=== PATIENT | male | born 2005 | race Caucasian/White ===

== ENCOUNTER 2025-08-13 21:06 | Inpatient (IN) | payer BC, SELFPAY ==
[2025-08-13 21:32] LABS: #Basophils 0.05 10x3/uL (0.0-0.2); #Eosinophils 0.03 10x3/uL (0.0-0.7); #Monocytes 0.28 10x3/uL (0.11-0.59); #Neutrophils 5.34 10x3/uL (1.40-6.50); %Basophils 0.7 % (0.0-1.0); %Eosinophils 0.4 % (0.0-10.0); %Lymphocytes 16.8 % (28.0-48.0); %Monocytes 4.1 % (0.0-4.0); %Neutrophils 77.6 % (31.0-61.0); Hematocrit 41.9 % (42.0-52.0); Hemoglobin 14.2 g/dL (14.0-18.0); Mean Corpuscular Hemoglobin 28.9 pg (25.0-35.0); Mean Corpuscular Volume 85.3 fL (78.0-98.0); Platelet Count 185 10x3/uL (130-400); Red Blood Cell (RBC) Count 4.91 mill/uL (4.00-5.20); White Blood Cell (WBC) Count 6.89 10x3/uL (4.8-10.8)
[2025-08-13 21:59] LABS: ALT (SGPT) 16 U/L (Less than 45); AST (SGOT) 21 U/L (11-34); Albumin 4.4 g/dL (3.1-4.5); Alkaline Phosphatase 54 U/L (50-130); Anion Gap 18 mmol/L (10-20); BUN (Urea Nitrogen) 17 mg/dL (8.4-21.0); Bilirubin, Total 2.0 mg/dL (0.3-1.2); Calc. Creatinine Clearance 0 mL/min (70-130); Calcium 8.7 mg/dL (7.8-10.44); Carbon Dioxide 21 mmol/L (22-29); Chloride 109 mmol/L (98-107); Globulin 2.4 g/dL (2.4-3.5); Glucose 115 mg/dL (70-105); Potassium 3.6 mmol/L (3.5-5.1); Sodium 144 mmol/L (136-145)
[2025-08-13 22:02] LABS: Acetaminophen 328 mcg/mL (Less than 10); Salicylate Less than 8.0 mg/dL (Less than 8.0)
[2025-08-13] MEDS ORDERED: Ondansetron PF 4 MG/2 ML Vial IVP PRN (23:15)
[2025-08-13 23:23] LABS: INR-International Normal Ratio 1.3; Prothrombin Time 16.2 sec (12.0-14.7)
[2025-08-13 23:24] LABS: PTT 27.4 sec (22.9-36.1)
[2025-08-13] MEDS ORDERED: Calcium Carbonate 500 MG ChewTAB PO PRN (23:44)
[2025-08-13] MEDS ORDERED: Ibuprofen 200 MG TAB PO PRN (23:44)
[2025-08-13] MEDS ORDERED: Electrolyte Replacement Protocol 1 EACH FS SCH (23:45)
[2025-08-14] MEDS ORDERED: Ondansetron PF 4 MG/2 ML Vial ONE (00:09)
[2025-08-14] MEDS: Ondansetron PF 4 MG/2 ML Vial IVP PRN (00:13)
[2025-08-14] MEDS: DEXTROSE 5% IV SCH ×2 (00:14→03:02)
[2025-08-14] MEDS: ACETYLCYSTEINE IV SCH ×2 (00:14→03:02)
[2025-08-14] MEDS: WATER IV SCH ×2 (00:14→03:02)
[2025-08-14 01:10] LABS: Bacteria/HPF None Seen HPF (None Seen); CAUTI Indications for Culture Alt mental st,lethar; Glucose, Urine (Dipstick) 150 mg/dL (Negative); Leukocyte Negative Leu/uL (Negative); Protein, Urine (Dipstick) Negative (Neg-Trace); RBC/HPF 0-3 HPF (0-3); Specific Gravity, Urine 1.033 (1.002-1.036); WBC/HPF 0-3 HPF (0-3)
[2025-08-14 01:13] LABS: Urine Culture Reflex No No
[2025-08-14 01:15] LABS: INR-International Normal Ratio 1.4; Prothrombin Time 16.8 sec (12.0-14.7)
[2025-08-14 01:16] LABS: PTT 29.8 sec (22.9-36.1)
[2025-08-14 01:18] LABS: Cocaine Metabolite Screen Negative (Negative); THC/Cannabinoid Screen Negative (Negative); Tricyclic Screen Negative (Negative)
[2025-08-14 01:24] LABS: ALT (SGPT) 16 U/L (Less than 45); AST (SGOT) 28 U/L (11-34); Albumin 4.1 g/dL (3.1-4.5); Alkaline Phosphatase 50 U/L (50-130); Anion Gap 18 mmol/L (10-20); BUN (Urea Nitrogen) 14 mg/dL (8.4-21.0); Bilirubin, Total 1.8 mg/dL (0.3-1.2); Calc. Creatinine Clearance 0 mL/min (70-130); Calcium 8.4 mg/dL (7.8-10.44); Carbon Dioxide 19 mmol/L (22-29); Chloride 109 mmol/L (98-107); Globulin 2.2 g/dL (2.4-3.5); Glucose 149 mg/dL (70-105); Potassium 3.6 mmol/L (3.5-5.1); Sodium 142 mmol/L (136-145)
[2025-08-14 05:17] LABS: #Basophils Less than 0.03 10x3/uL (0.0-0.2); #Eosinophils Less than 0.03 10x3/uL (0.0-0.7); #Monocytes 0.13 10x3/uL (0.11-0.59); #Neutrophils 3.66 10x3/uL (1.40-6.50); %Basophils 0.4 % (0.0-1.0); %Eosinophils 0.0 % (0.0-10.0); %Lymphocytes 17.3 % (28.0-48.0); %Monocytes 2.8 % (0.0-4.0); %Neutrophils 79.3 % (31.0-61.0); Hematocrit 39.4 % (42.0-52.0); Hemoglobin 13.4 g/dL (14.0-18.0); Mean Corpuscular Hemoglobin 29.2 pg (25.0-35.0); Mean Corpuscular Volume 85.8 fL (78.0-98.0); Platelet Count 189 10x3/uL (130-400); Red Blood Cell (RBC) Count 4.59 mill/uL (4.00-5.20); White Blood Cell (WBC) Count 4.62 10x3/uL (4.8-10.8)
[2025-08-14 05:51] LABS: ALT (SGPT) 22 U/L (Less than 45); AST (SGOT) 32 U/L (11-34); Albumin 4.0 g/dL (3.1-4.5); Alkaline Phosphatase 52 U/L (50-130); Anion Gap 17 mmol/L (10-20); BUN (Urea Nitrogen) 11 mg/dL (8.4-21.0); Bilirubin, Total 1.8 mg/dL (0.3-1.2); Calc. Creatinine Clearance 0 mL/min (70-130); Calcium 8.6 mg/dL (7.8-10.44); Carbon Dioxide 18 mmol/L (22-29); Chloride 108 mmol/L (98-107); Globulin 2.3 g/dL (2.4-3.5); Glucose 123 mg/dL (70-105); Potassium 3.5 mmol/L (3.5-5.1); Sodium 139 mmol/L (136-145)
[2025-08-14 05:57] LABS: Acetaminophen 153 mcg/mL (Less than 10)
[2025-08-14 08:07] VITALS: BP 113/62
[2025-08-14 16:42] VITALS: BMI 22.8
[2025-08-14 17:27] LABS: INR-International Normal Ratio 1.6; Prothrombin Time 19.5 sec (12.0-14.7)
[2025-08-14 17:28] LABS: ALT (SGPT) 20 U/L (Less than 45); AST (SGOT) 19 U/L (11-34); Albumin 3.5 g/dL (3.1-4.5); Alkaline Phosphatase 51 U/L (50-130); Anion Gap 6 mmol/L (10-20); BUN (Urea Nitrogen) 8 mg/dL (8.4-21.0); Bilirubin, Total 0.9 mg/dL (0.3-1.2); Calc. Creatinine Clearance 149 mL/min (70-130); Calcium 7.7 mg/dL (7.8-10.44); Carbon Dioxide 18 mmol/L (22-29); Chloride 108 mmol/L (98-107); Globulin 2.0 g/dL (2.4-3.5); Glucose 395 mg/dL (70-105); Potassium 3.3 mmol/L (3.5-5.1); Sodium 129 mmol/L (136-145)
[2025-08-14 17:31] LABS: ALT (SGPT) 18 U/L (Less than 45); AST (SGOT) 18 U/L (11-34); Acetaminophen 15 mcg/mL (Less than 10); Albumin 3.5 g/dL (3.1-4.5); Alkaline Phosphatase 52 U/L (50-130); Bilirubin, Direct 0.4 mg/dL (0.1-0.3); Bilirubin, Total 0.9 mg/dL (0.3-1.2)
[2025-08-14 20:51] LABS: ALT (SGPT) 20 U/L (Less than 45); AST (SGOT) 20 U/L (11-34); Albumin 3.8 g/dL (3.1-4.5); Alkaline Phosphatase 64 U/L (50-130); Anion Gap 12 mmol/L (10-20); BUN (Urea Nitrogen) 8 mg/dL (8.4-21.0); Bilirubin, Total 1.2 mg/dL (0.3-1.2); Calc. Creatinine Clearance 134 mL/min (70-130); Calcium 8.5 mg/dL (7.8-10.44); Carbon Dioxide 24 mmol/L (22-29); Chloride 110 mmol/L (98-107); Globulin 2.1 g/dL (2.4-3.5); Glucose 123 mg/dL (70-105); Potassium 3.5 mmol/L (3.5-5.1); Sodium 142 mmol/L (136-145)
[2025-08-14] MEDS ORDERED: Potassium Bicarbonate/Cit Ac 20 MEQ TAB PER TUBE SCH (21:00)
[2025-08-14] MEDS: Famotidine 20 MG TAB PO SCH (21:03)
[2025-08-14] MEDS: Potassium Bicarbonate/Cit Ac 20 MEQ TAB PO SCH (21:38)
[2025-08-15 03:33] LABS: #Basophils 0.04 10x3/uL (0.0-0.2); #Eosinophils 0.11 10x3/uL (0.0-0.7); #Monocytes 0.38 10x3/uL (0.11-0.59); #Neutrophils 3.59 10x3/uL (1.40-6.50); %Basophils 0.6 % (0.0-1.0); %Eosinophils 1.6 % (0.0-10.0); %Lymphocytes 38.2 % (28.0-48.0); %Monocytes 5.7 % (0.0-4.0); %Neutrophils 53.8 % (31.0-61.0); Hematocrit 42.9 % (42.0-52.0); Hemoglobin 15.0 g/dL (14.0-18.0); Mean Corpuscular Hemoglobin 29.5 pg (25.0-35.0); Mean Corpuscular Volume 84.4 fL (78.0-98.0); Platelet Count 221 10x3/uL (130-400); Red Blood Cell (RBC) Count 5.08 mill/uL (4.00-5.20); White Blood Cell (WBC) Count 6.68 10x3/uL (4.8-10.8)
[2025-08-15 03:53] LABS: INR-International Normal Ratio 1.3; Prothrombin Time 16.6 sec (12.0-14.7)
[2025-08-15 07:41] LABS: Acetaminophen Less than 10 mcg/mL (Less than 10)
[2025-08-15 10:01] LABS: ALT (SGPT) 20 U/L (Less than 45); AST (SGOT) 18 U/L (11-34); Albumin 4.0 g/dL (3.1-4.5); Alkaline Phosphatase 65 U/L (50-130); Bilirubin, Direct 0.3 mg/dL (0.1-0.3); Bilirubin, Total 0.9 mg/dL (0.3-1.2)
[2025-08-15 15:12] VITALS: BMI 22.8
[2025-08-15 22:14] VITALS: TEMP 97.3
== END 2025-08-15 22:05 | disposition short-term general hospital (02) | DRG 918 ==
LOC: ERS 21:06 → ERHOLD 22:59 → IMCU/EMU 08-14 16:35
PROVIDERS: ADMIT Student in an Organized Health Care Education/Training Program; ATTEND Internal Medicine
DX: T39.1X2A Poisoning by 4-Aminophenol derivatives, intentional self-harm, initial encounter (principal); R45.851 Suicidal ideations; F32.A Depression, unspecified; F41.9 Anxiety disorder, unspecified; Z79.899 Other long term (current) drug therapy
CPT/HCPCS: 36415; 36416; 80053; 80076; 80143; 80306; 80307; 81001; 83605; 85025; 85610; 85730; 93005; 96374; 96375; J0132; J2060; J7030; J7070